=== PATIENT | male | born 1990 | race African-American/Black ===

== ENCOUNTER 2024-07-13 21:35 | Emergency (ER) | payer OTHER ==
[2024-07-13 21:39] VITALS: BP 130/80; PULSE 64; RESP 16; TEMP 98; BMI 29.2
[2024-07-13] MEDS ORDERED: diphenhydrAMINE HCL 25 MG CAPSULE (FP) PO ONE (22:15)
[2024-07-13] MEDS: diphenhydrAMINE HCL 25 MG CAPSULE (FP) PO ONE (22:19)
== END 2024-07-13 22:31 | disposition home or self-care (01) ==
LOC: JERFT 21:35
DX: L50.9 Urticaria, unspecified (principal)
CPT/HCPCS: 99283-25